=== PATIENT | male | born 1985 | race American Indian/Alaskan Native ===

== ENCOUNTER 2016-09-07 14:11 | Emergency (ER) | payer SELFPAY ==
[2016-09-07 14:46] VITALS: BP 122/63
[2016-09-07] MEDS ORDERED: ULTRAM PO ONE (16:38)
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
== END 2016-09-07 17:03 | disposition home or self-care (01) ==
LOC: ED 14:11
DX: R51 Headache (principal); M54.2 Cervicalgia; V87.7XXA Person injured in collision between other specified motor vehicles (traffic), initial encounter; Y93.89 Activity, other specified; Y99.9 Unspecified external cause status; Y92.410 Unspecified street and highway as the place of occurrence of the external cause
CPT/HCPCS: 99283